=== PATIENT | female | born 1995 | race Caucasian/White ===

== ENCOUNTER 2022-08-02 20:29 | Emergency (ER) | payer SELFPAY ==
[~2022-08-02] VITALS: Ht 160 cm; Wt 95.7 kg
[2022-08-02 20:34] VITALS: BP 126/83
--- NOTE | 2022-08-02 20:38 | NUR ---
PT TO BED 9
--- NOTE | 2022-08-02 21:00 | NUR ---
DR. DONAHUE AT BEDSIDE
[2022-08-02] MEDS ORDERED: BENZ200C4 PO (21:06)
[2022-08-02] MEDS ORDERED: ALBU0.0912 IH (21:07)
[2022-08-02 21:14] VITALS: BP 126/83
--- NOTE | 2022-08-02 21:14 | NUR ---
Patient discharged with v/s stable. Written and verbal after care instructions given and explained. Patient alert, oriented and verbalized understanding of instructions. Ambulatory with steady gait. All questions addressed prior to discharge. ID band removed. Patient advised to follow up with PMD. Rx of ALBUTEROL SULFATE, BENZONATATE given. Patient educated on indication of medication including possible reaction and side effects. Opportunity to ask questions provided and answered.
[2022-08-03] MEDS ORDERED: BENZ100C6 PO (14:36)
== END 2022-08-02 21:14 | disposition home or self-care (01) ==
LOC: MED 20:29
DX: J06.9 Acute upper respiratory infection, unspecified (principal)
CPT/HCPCS: 99283